=== PATIENT | male | born 1990 | race Caucasian/White ===

== ENCOUNTER 2021-03-04 08:52 | Emergency (ER) | payer OTHER ==
[~2021-03-04] VITALS: Ht 170.2 cm; Wt 62.7 kg
[~2021-03-04 08:52] MED LIST: IBUP-812 PO
[2021-03-04 08:55] VITALS: BP 133/80
[2021-03-04] MEDS ORDERED: LIDOcaine 1% W/epiNEPHrine 1:200,000 10ml vial IJ ONE (10:45)
[2021-03-04] MEDS ORDERED: TETanus/Pertussis (Acell)/Diphther VAC/PF (Tdap-Adult) 0.5ml syringe IMVAC ONE (10:45)
== END 2021-03-04 11:34 | disposition home or self-care (01) ==
LOC: ER 08:52
DX: S61.412A Laceration without foreign body of left hand, initial encounter (principal); F12.90 Cannabis use, unspecified, uncomplicated; W22.8XXA Striking against or struck by other objects, initial encounter; Y93.89 Activity, other specified; Y92.89 Other specified places as the place of occurrence of the external cause; Y99.8 Other external cause status
CPT/HCPCS: 12001; 73120; 90471; 90715; 99283